=== PATIENT | male | born 1965 | race Caucasian/White ===

== ENCOUNTER 2018-09-25 07:11 | Emergency (ER) | payer BC ==
[~2018-09-25] VITALS: Ht 185.4 cm; Wt 78.0 kg
--- NOTE | 2018-09-25 07:22 | NUR ---
in room 1 b, connected to bedside monitor. 12 lead ekg done. c/ nausea.
--- NOTE | 2018-09-25 07:30 | NUR ---
Dr Correia at the bedside
[2018-09-25] MEDS ORDERED: IV NORMAL SALINE 1000 ML BAG IV ONE (07:45)
[2018-09-25] MEDS ORDERED: MECLIZINE HCL 25 MG TABLET PO ONE (07:45)
[2018-09-25 07:53] LABS: BASOPHILS % (AUTO) 0.4 % (0.0-2.0); EOSINOPHILS # (AUTO) 0.1 K/uL (0.0-0.7); EOSINOPHILS % (AUTO) 1.4 % (0.0-7.0); HEMATOCRIT 39.4 % (36.7-47.1); HEMOGLOBIN 13.4 g/dL (12.5-16.3); LYMPHOCYTES # (AUTO) 0.9 K/uL (20.0-40.0); LYMPHOCYTES % (AUTO) 15.1 % (20.5-51.5); MEAN CORPUSCULAR HEMOGLOBIN 29.5 uug (23.8-33.4); MEAN CORPUSCULAR HGB CONC 34 g/dL (32.5-36.3); MEAN CORPUSCULAR VOLUME 86.5 fL (73.0-96.2); MONOCYTES # (AUTO) 0.3 K/uL (2.0-10.0); MONOCYTES % (AUTO) 4.7 % (0.0-11.0); NEUTROPHILS # (AUTO) 4.7 K/uL (1.8-8.9); NEUTROPHILS % (AUTO) 78.4 % (38.5-71.5); PLATELET COUNT (AUTO) 166 K/uL (152-348); RED BLOOD CELL COUNT(AUTO) 4.56 MIL/uL (4.06-5.63)
--- NOTE | 2018-09-25 07:55 | NUR ---
IV NS started IV via right arm #18
[2018-09-25] MEDS ORDERED: MECLIZINE HCL 25 MG TABLET ONE (07:56)
[2018-09-25 07:58] LABS: CREATININE 0.9 mg/dL (0.6-1.3)
[2018-09-25 08:04] LABS: BILIRUBIN,DIRECT 0.2 mg/dL (0.0-0.2); BILIRUBIN,TOTAL 0.6 mg/dL (0.2-1.0); TOTAL PROTEIN, SERUM 6.6 g/dL (6.4-8.2)
[2018-09-25 09:00] VITALS: BP 112/79
--- NOTE | 2018-09-25 09:00 | NUR ---
discharged home with exit care and prescriptions
== END 2018-09-25 09:05 | disposition home or self-care (01) ==
LOC: ER 07:11
DX: H81.10 Benign paroxysmal vertigo, unspecified ear (principal); R11.0 Nausea
CPT/HCPCS: 36415; 70030-TC; 85025; 93005; J7030; J8597